=== PATIENT | male | born 1990 | race Asian ===

== ENCOUNTER 2022-12-09 13:23 | Outpatient (CLI) | payer OTHER ==
--- NOTE | 2022-12-11 16:27 | MRI Report ---
PROCEDURE: BRAIN W/WO INDICATIONS: HYPOPITUITARISM CONTRAST: GADAVIST 10.0 ML TECHNIQUE: Noncontrast axial T1 spin echo, axial T2 fast spin echo, sagittal and axial FLAIR, coronal T2 fast sp in echo, axial gradient echo, axial diffusion and ADC through the brain. After the administration of contrast, axial and coronal T1 spin echo with fat saturation through the brain. COMPARISON: None. FINDINGS: Image quality: Excellent. CSF spaces: Basal cisterns are patent. No extra-axial fluid collections. Ventricles are normal in size and shape. Brain: No midline shift. No intracranial bleeds or masses. No abnormal intracranial enhancement. There is cerebral volume loss for age. There is periventricular white matter chronic small vessel is chemic change. The brainstem appears normal. Diffusion-weighted images demonstrate no acute ischemi c insults. No chronic ischemic insults. Normal intravascular flow voids are present. Pituitary gland is normal in size. There are no areas of mass lesion, abnormal signal or delayed enha ncement. Infundibulum is midline. Skull and face: Calvarial marrow is normal in signal. Orbits appear normal. Sinuses: Sinuses demonstrate bilateral maxillary sinus mucus retention cysts versus polyps. IMPRESSION: 1. No acute intracranial process.. Pituitary gland is unremarkable. Reviewed by: Johana Miranda MD on 12/11/2022 4:26 PM PDT Approved by: Johana Miranda MD on 12/11/2022 4:26 PM PDT Station ID: [id number]
== END 2022-12-09 13:24 | disposition home or self-care (01) ==
LOC: DI 13:23
PROVIDERS: ATTEND Internal Medicine
DX: E23.0 Hypopituitarism (principal)
CPT/HCPCS: 70553; A9585